=== PATIENT | male | born 1950 | race American Indian/Alaskan Native ===

== ENCOUNTER 2017-02-05 12:28 | Outpatient (CLI) | payer MEDICARE, OTHER ==
--- NOTE | 2017-02-06 08:20 | Vascular Lab Report ---
LOWER EXTREMITY ARTERIAL DUPLEX: REASON FOR EXAM: Peripheral arterial disease. COMMENTS ON THE RIGHT: Triphasic waveforms are seen proximally. Monophasic waveforms are seen distally. No significant velocity gradients are identified. No focal significant plaque is identified. Right femoral TP trunk bypass is patent. 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 Findings are consistent with abnormal perfusion. Findings are inconclusive with the ability to heal distal wounds. COMMENTS ON THE LEFT: Biphasic waveforms are seen proximally. Biphasic waveforms are seen distally. No significant velocity gradients are identified. No focal significant plaque is identified. Left femoral-popliteal bypass is patent Findings are consistent with abnormal perfusion. Findings are inconclusive with the ability to heal distal wounds. IMPRESSION: RIGHT: Patent right femoral TP trunk bypass with a false aneurysm at the distal anastomosis.. LEFT:Patent left femoropopliteal bypass.
--- NOTE | 2017-02-06 08:21 | Vascular Lab Report ---
LOWER EXTREMITY ARTERIAL PHYSIOLOGIC STUDY: REASON FOR EXAM: Peripheral arterial disease. COMMENTS ON THE RIGHT: Ankle brachial index is 0.98. This value is normal. Toe brachial index is 0.84. This value is normal. Wound healing is likely. Pulse volume recording at the level of the ankle is normal. Exercise testing was not done. COMMENTS ON THE LEFT: Ankle brachial index is 0.96. This value is slightly decreased. Toe brachial index is 1.27. This value is normal. Wound healing is likely. Pulse volume recording at the level of the ankle is normal. Exercise testing was not done. IMPRESSION: RIGHT: No hemodynamically significant arterial disease. LEFT:No hemodynamically significant arterial disease.
== END 2017-02-05 12:29 | disposition home or self-care (01) ==
LOC: VAS 12:28
PROVIDERS: ATTEND Surgery Vascular Surgery
DX: I70.213 Atherosclerosis of native arteries of extremities with intermittent claudication, bilateral legs (principal)
CPT/HCPCS: 93922; 93925

== ENCOUNTER 2017-02-05 15:11 | Emergency (ER) | payer MEDICARE, OTHER ==
--- NOTE | 2017-02-05 15:32 | Emergency Department Report ---
Entered by KOURTNEY BRUNO, acting as scribe for UYEN AARON NP. Chief Complaint: Extremity Injury, Lower Stated Complaint: LT LEG SWELLING Time Seen by Provider: 02/05/17 15:24 - HPI History of Present Illness: 66 y/o male presents c/o tight left leg swelling that started earlier today. Pt notes incident occured after he got done with an US, which was ordered because he had blood in his urine. Pt notes pain in legs but denies fever, chest pain or SOB. Pt is not ambulatory and notes no swellling was present yesterday. - ROS Review of Systems: +left leg pain +left leg swelling -fever - Chest pain -SOB - Exam Vital Signs: Vital Signs 02/05/17 15:25 Temperature 97.5 F L Pulse Rate 78 Respiratory 20 Rate Blood Pressure 188/87 O2 Sat by Pulse 100 Oximetry Physical Exam: pt is alert and appropriate in triage. RLE edema noted. surgical site well healed, no signs or cellulites MSE screening note: Focused history and physical exam performed. Due to findings the following was ordered: labs, us ED Disposition for MSE Condition: Stable This documentation as recorded by the scribe,KOURTNEY BRUNO,accurately reflects the service I personally performed and the decisions made by ,UYEN AARON , NUCLEAR REACTOR ENGINEER.
[2017-02-05 15:46] LABS: Basophils % (Auto) 0.7 % (0.0-1.8); Eosinophils % (Auto) 2.7 % (0.0-4.3); Hematocrit 29.3 % (35.5-45.6); Hemoglobin 9.4 gm/dl (11.8-15.2); Mean Corpuscular HGB Conc 32 % (32-34); Mean Corpuscular Hemoglobin 26 pg (28-32); Mean Corpuscular Volume 81 fl (84-94); Platelet Count 450 K/mm3 (140-440); Red Cell Distribution Width 18.2 % (13.2-15.2); White Blood Count 11.6 K/mm3 (4.5-11.0)
[2017-02-05 15:58] LABS: INR 1.98 (0.87-1.13)
[2017-02-05 16:11] LABS: Albumin 3.3 g/dL (3.9-5); Albumin/Globulin Ratio 0.6 %; Alkaline Phosphatase 63 units/L (35-129); Anion Gap 21 mmol/L; Bilirubin,Total 0.3 mg/dL (0.1-1.2); Blood Urea Nitrogen 21 mg/dL (9-20); Calcium 9.5 mg/dL (8.4-10.2); Carbon Dioxide 24 mmol/L (22-30); Chloride 95.5 mmol/L (98-107); Glucose 154 mg/dL (75-100); Potassium 4.4 mmol/L (3.6-5.0); Sodium 136 mmol/L (137-145); Total Protein 8.7 g/dL (6.3-8.2)
[2017-02-05 16:12] LABS: Alanine Aminotransferase < 5 units/L (7-56)
[2017-02-05 16:35] LABS: Partial Thromboplastin Time 65.6 Sec. (24.2-36.6)
--- NOTE | 2017-02-05 17:10 | Emergency Department Report ---
ED General Adult HPI - General Chief complaint: Extremity Injury, Lower Stated complaint: LT LEG SWELLING Time Seen by Provider: 02/05/17 15:24 Source: patient Mode of arrival: Wheelchair Limitations: Physical Limitation - History of Present Illness Initial comments: 66-year-old female with history of hypertension, diabetes, prior CVA, femoropopliteal bypass bilaterally on Xarelto and Plavix presenting today because of right leg pain and swelling. Patient just had a arterial Doppler of his lower extremities which showed a small pseudoaneurysm and as he was leaving the hospital he said he had pain to his right leg and swelling. He has baseline decreased sensation in both legs. No significant trauma. Did not step awkwardly. - Related Data Home Medications Medication Instructions Recorded Confirmed Last Taken AtorvaSTATin [Lipitor] 80 mg PO QDAY 05/14/16 12/11/16 05/30/16 Cilostazol [Pletal] 100 mg PO QDAY 05/14/16 12/24/16 12/23/16 20:00 Clonidine HCl [Catapres] 0.3 mg PO Q8HR 05/14/16 12/24/16 12/24/16 05:30 Clopidogrel [Plavix] 75 mg PO QDAY 05/14/16 12/24/16 12/24/16 05:30 Furosemide [Lasix TAB] 40 mg PO QDAY 05/14/16 12/24/16 12/19/16 09:00 Gabapentin [Neurontin] 300 mg PO Q8HR 05/14/16 12/24/16 12/23/16 20:00 Losartan [Cozaar] 100 mg PO QDAY 05/14/16 12/24/16 12/24/16 05:30 Metoprolol [Lopressor TAB] 100 mg PO QDAY 05/14/16 12/24/16 12/24/16 05:30 Tamsulosin [Flomax] 0.4 mg PO QDAY 05/14/16 12/24/16 12/23/16 21:00 glipiZIDE [Glucotrol] 5 mg PO QDAY 05/14/16 12/24/16 12/23/16 17:00 metFORMIN [Glucophage] 500 mg PO BID 05/14/16 12/24/16 12/21/16 17:00 Previous Rx's Medication Instructions Recorded Last Taken Type Acetaminophen [Acetaminophen TAB] 650 mg PO Q4H PRN #1 tablet 06/07/16 12/23/16 20:00 Rx HYDROcodone/APAP 5-325 [[place] 2 each PO Q6H PRN #45 tablet 06/07/16 Unknown Rx 5-325 mg TAB] HYDROcodone/APAP 7.5-325 [[place] 1 each PO Q6HR PRN #60 tablet 12/28/16 Unknown Rx 7.5/325] Allergies Allergy/AdvReac Type Severity Reaction Status Date / Time lisinopril Allergy Shortness Verified 02/05/17 15:31 of Breath ED Review of Systems ROS: Stated complaint: LT LEG SWELLING Other details as noted in HPI Comment: All other systems reviewed and negative Constitutional: denies: chills, fever Respiratory: denies: cough Cardiovascular: denies: chest pain Gastrointestinal: denies: abdominal pain Genitourinary: denies: dysuria Skin: denies: rash Psychiatric: denies: anxiety ED Past Medical Hx - Past Medical History Hx Hypertension: Yes (1995) Hx Congestive Heart Failure: Yes Hx Diabetes: Yes Hx Deep Vein Thrombosis: Yes Hx Liver Disease: No Hx Renal Disease: Yes Additional medical history: PVD - Surgical History Additional Surgical History: BILATERAL LEG SURGERY - Social History Smoking Status: Former Smoker Substance Use Type: None - Medications Home Medications: Home Medications Medication Instructions Recorded Confirmed Last Taken Type AtorvaSTATin [Lipitor] 80 mg PO QDAY 05/14/16 12/11/16 05/30/16 History Cilostazol [Pletal] 100 mg PO QDAY 05/14/16 12/24/16 12/23/16 20:00 History Clonidine HCl [Catapres] 0.3 mg PO Q8HR 05/14/16 12/24/16 12/24/16 05:30 History Clopidogrel [Plavix] 75 mg PO QDAY 05/14/16 12/24/16 12/24/16 05:30 History Furosemide [Lasix TAB] 40 mg PO QDAY 05/14/16 12/24/16 12/19/16 09:00 History Gabapentin [Neurontin] 300 mg PO Q8HR 05/14/16 12/24/16 12/23/16 20:00 History Losartan [Cozaar] 100 mg PO QDAY 05/14/16 12/24/16 12/24/16 05:30 History Metoprolol [Lopressor TAB] 100 mg PO QDAY 05/14/16 12/24/16 12/24/16 05:30 History Tamsulosin [Flomax] 0.4 mg PO QDAY 05/14/16 12/24/16 12/23/16 21:00 History glipiZIDE [Glucotrol] 5 mg PO QDAY 05/14/16 12/24/16 12/23/16 17:00 History metFORMIN [Glucophage] 500 mg PO BID 05/14/16 12/24/16 12/21/16 17:00 History Acetaminophen [Acetaminophen TAB] 650 mg PO Q4H PRN #1 tablet 06/07/16 12/24/16 12/23/16 20:00 Rx HYDROcodone/APAP 5-325 [[place] 2 each PO Q6H PRN #45 tablet 06/07/16 12/11/16 Unknown Rx 5-325 mg TAB] HYDROcodone/APAP 7.5-325 [[place] 1 each PO Q6HR PRN #60 tablet 12/28/16 Unknown Rx 7.5/325] ED Physical Exam - General Limitations: Physical Limitation General appearance: alert, in no apparent distress - Head Head exam: Present: atraumatic - Eye Eye exam: Present: normal appearance - ENT ENT exam: Present: normal exam - Respiratory Respiratory exam: Present: normal lung sounds bilaterally, respiratory distress - Cardiovascular Cardiovascular Exam: Present: regular rate, normal rhythm - GI/Abdominal GI/Abdominal exam: Present: soft. Absent: distended, tenderness - Extremities Exam Extremities exam: Present: other (right lower extremity does appear little more swollen compared to the left, there is no significant tenderness to the or distally, has 2 surgical scar wounds on both legs, has decreased sensation in the foot bilaterally which appears to be baseline per the patient, DP and PT pulses are faint but present) - Neurological Exam Neurological exam: Present: alert, oriented X3 - Psychiatric Psychiatric exam: Present: normal affect ED Course Vital Signs 02/05/17 15:25 Temperature 97.5 F L Pulse Rate 78 Respiratory 20 Rate Blood Pressure 188/87 O2 Sat by Pulse 100 Oximetry - Consultations Consultation #1: 02/05/17 17:10 Subjective vascular surgery, spoke to the PA communicate my concern for possible compartment syndrome. The PA called back after speaking to the vascular surgeon that operated on the patient, Dr. Nathan, states that due to the bypass the patient had his fascia was opened and he cannot develop compartment syndrome. Vascular the patient does have chronic right lower extremity swelling pain. They recommended discharge with follow up in the office. ED Medical Decision Making - Lab Data Result diagrams: 02/05/17 15:33 02/05/17 15:33 - Medical Decision Making Labs, pain medication, vascular surgery consult Show some renal failure but it is chronic based on prior lab results. Patient is on anticoagulation with relative and coagulation studies are elevated. Critical care attestation.: If time is entered above; I have spent that time in minutes in the direct care of this critically ill patient, excluding procedure time. ED Disposition Clinical Impression: Right leg pain Disposition: DISCHARGED TO HOME OR SELFCARE Is pt being admited?: No Condition: Stable Additional Instructions: Please follow up with Dr. Nathan, your vascular surgeon, in the next 2-3 days. Return to the emergency room if your symptoms worsen or he develop new symptoms.
[2017-02-05] MEDS: PERCOCET 5/325 PO ONE (17:43)
[2017-02-05] MEDS: MORPHINE IV ONE (17:43)
[2017-02-05 18:37] VITALS: BP 170/78
== END 2017-02-05 18:38 | disposition home or self-care (01) ==
LOC: ED 15:11
DX: M79.604 Pain in right leg (principal); Z88.8 Allergy status to other drugs, medicaments and biological substances; I10 Essential (primary) hypertension; I50.9 Heart failure, unspecified; E11.9 Type 2 diabetes mellitus without complications; I82.409 Acute embolism and thrombosis of unspecified deep veins of unspecified lower extremity; N28.9 Disorder of kidney and ureter, unspecified; Z87.891 Personal history of nicotine dependence
CPT/HCPCS: 36415; 80053; 82140; 82550; 83880; 85025; 85610; 85730; 99283; J2270

== ENCOUNTER 2017-02-11 19:35 | Inpatient (IN) | payer MEDICARE, OTHER ==
[2017-02-11] MEDS ORDERED: DULCOLAX PR PRN (19:53)
[2017-02-11] MEDS ORDERED: D50W (25GM) IV PRN (19:53)
[2017-02-11] MEDS ORDERED: SENOKOT PO PRN (19:53)
[2017-02-11] MEDS: GLUCOPHAGE PO SCH (21:44)
[2017-02-11] MEDS: NEURONTIN PO SCH (21:44)
[2017-02-11] MEDS: CATAPRES PO SCH (21:44)
[2017-02-11] MEDS: NORCO 5/325 PO PRN (21:44)
[2017-02-11] MEDS: NOVOLOG SUB-Q SCH (21:46)
[2017-02-11] MEDS ORDERED: NON-FORMULARY (Clonidine Hcl [Catapres] 0.3 MG) PO SCH (22:00)
[2017-02-11] MEDS: ELIQUIS PO SCH (22:35)
[2017-02-12 05:06] LABS: Eosinophils % (Auto) 6.2 % (0.0-4.3); Hematocrit 24.3 % (35.5-45.6); Hemoglobin 7.9 gm/dl (11.8-15.2); Mean Corpuscular HGB Conc 33 % (32-34); Mean Corpuscular Hemoglobin 27 pg (28-32); Mean Corpuscular Volume 82 fl (84-94); Platelet Count 418 K/mm3 (140-440); Red Blood Count 2.97 M/mm3 (3.65-5.03); Red Cell Distribution Width 18.1 % (13.2-15.2); White Blood Count 10.3 K/mm3 (4.5-11.0)
[2017-02-12 05:52] LABS: Albumin 2.8 g/dL (3.9-5); Albumin/Globulin Ratio 0.7 %; Alkaline Phosphatase 61 units/L (35-129); Bilirubin,Total 0.3 mg/dL (0.1-1.2); Blood Urea Nitrogen 32 mg/dL (9-20); Calcium 8.7 mg/dL (8.4-10.2); Carbon Dioxide 26 mmol/L (22-30); Glucose 164 mg/dL (75-100); Total Protein 6.9 g/dL (6.3-8.2)
[2017-02-12 05:53] LABS: Anion Gap 15 mmol/L; Chloride 94.6 mmol/L (98-107); Sodium 132 mmol/L (137-145)
[2017-02-12 06:00] LABS: Alanine Aminotransferase < 5 units/L (7-56)
[2017-02-12] MEDS: NEURONTIN PO SCH ×3 (06:23→23:06)
[2017-02-12] MEDS: CATAPRES PO SCH ×3 (06:24→23:08)
[2017-02-12] MEDS ORDERED: NON-FORMULARY (Losartan [Cozaar] 100 MG) PO SCH (08:00)
[2017-02-12] MEDS: NOVOLOG SUB-Q SCH ×3 (08:38→16:30)
[2017-02-12] MEDS: ELIQUIS PO SCH ×3 (08:39→23:07)
[2017-02-12] MEDS: PLETAL PO SCH (08:40)
[2017-02-12] MEDS: NORCO 5/325 PO PRN (08:41)
[2017-02-12] MEDS: COZAAR PO SCH (08:42)
[2017-02-12] MEDS: LASIX PO SCH (08:43)
[2017-02-12] MEDS: PLAVIX PO SCH (08:43)
[2017-02-12] MEDS: GLUCOPHAGE PO SCH ×2 (08:44→23:08)
[2017-02-12] MEDS: FLOMAX PO SCH (08:44)
[2017-02-12] MEDS: LOPRESSOR PO SCH (08:44)
--- NOTE | 2017-02-12 13:36 | History and Physical Report ---
History of Present Illness Date: 02/12/17 Referring Facility: [facility] Date of admission: 02/11/17 19:35 Chief Complaint: PVD, bypass graft complication History of present illness: POST ADMISSION PHYSICIAN EVALUATION ONSET DATE: 02/06/2017 IMPAIRMENT GROUP CODE: 17.4 ETIOLOGIC DIAGNOSIS: PVD, bypass graft complication STATUS CHANGES SINCE PREADMISSION SCREENING: PAS has been reviewed. No significant changes noted; H/H is stable; pain is controlled on current regimen. Pt was able to tolerate therapy evaluations; remains an appropriate candidate for IRU. PREVIOUS FUNCTIONAL STATUS: Independent with ADLs, gait, transfers CURRENT FUNCTIONAL STATUS: S/SBA for transfers and gait; Romel to modA for ADLs HPI 66 y.o. male known to me from previous IRU admission in May 2016; admitted to [facility] due to progressively worsening RLE pain and swelling. Pt has a history of right femoropopliteal bypass in May 2016, with recent re-do; post-op with noted symptoms that worsening progressively. 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 Pt is now s/p repair and angioplasty of right peroneal artery. Post-operative course significant for elevated troponins; Cardiology consulted and recommended treatment for abnormal troponins/NSTEMI was anti-platelets and continuation of Eliquis. Acute care course also notable for transfusion of 3U pRBCs due to acute blood loss anemia; RLE pain; gait dysfunction. Pt is now admitted to IRU for aggressive therapies and ongoing medical management. Past History Past Medical History: CAD, diabetes, heart failure, hypertension, hyperlipidemia , PVD, stroke Past Surgical History: Other (multiple revascularization procedures) Social history: lives with family (daugther). denies: smoking, alcohol abuse Family history: diabetes, hypertension Medications and Allergies Allergies Allergy/AdvReac Type Severity Reaction Status Date / Time lisinopril Allergy Shortness Verified 02/05/17 15:31 of Breath Home Medications Medication Instructions Recorded Confirmed Last Taken Type AtorvaSTATin [Lipitor] 80 mg PO QDAY 05/14/16 02/12/17 05/30/16 History Cilostazol [Pletal] 100 mg PO QDAY 05/14/16 02/12/17 12/23/16 20:00 History Clonidine HCl [Catapres] 0.3 mg PO Q8HR 05/14/16 02/12/17 12/24/16 05:30 History Clopidogrel [Plavix] 75 mg PO QDAY 05/14/16 02/12/17 12/24/16 05:30 History Furosemide [Lasix TAB] 40 mg PO QDAY 05/14/16 02/12/17 12/19/16 09:00 History Gabapentin [Neurontin] 300 mg PO Q8HR 05/14/16 02/12/17 12/23/16 20:00 History Losartan [Cozaar] 100 mg PO QDAY 05/14/16 02/12/17 12/24/16 05:30 History Metoprolol [Lopressor TAB] 100 mg PO QDAY 05/14/16 02/12/17 12/24/16 05:30 History Tamsulosin [Flomax] 0.4 mg PO QDAY 05/14/16 02/12/17 12/23/16 21:00 History glipiZIDE [Glucotrol] 5 mg PO QDAY 05/14/16 02/12/17 12/23/16 17:00 History metFORMIN [Glucophage] 500 mg PO BID 05/14/16 02/12/17 12/21/16 17:00 History Acetaminophen [Acetaminophen TAB] 650 mg PO Q4H PRN #1 tablet 06/07/16 02/12/17 12/23/16 20:00 Rx HYDROcodone/APAP 5-325 [[place] 2 each PO Q6H PRN #45 tablet 06/07/16 02/12/17 Unknown Rx 5-325 mg TAB] HYDROcodone/APAP 7.5-325 [[place] 1 each PO Q6HR PRN #60 tablet 12/28/16 02/12/17 Unknown Rx 7.5/325] Apixaban [Eliquis] 5 mg PO Q12HR #60 tablet 02/11/17 02/12/17 Unknown Rx Apixaban [Eliquis] 10 mg PO Q12HR #20 tablet 02/11/17 02/12/17 Unknown Rx Active Meds: Active Medications Acetaminophen (Tylenol) 650 mg PO Q4H PRN PRN Reason: Pain MILD(1-3)/Fever >100.5/MARTINEZ Acetaminophen/Hydrocodone Bitart ([place] 5/325) 2 each PO Q6H PRN PRN Reason: Pain, Moderate (4-6) Last Admin: 02/12/17 08:41 Dose: 2 each Apixaban (Eliquis) 5 mg PO Q12HR [facility] PRN Reason: Protocol Last Admin: 02/12/17 10:21 Dose: Not Given Atorvastatin Calcium (Lipitor) 80 mg PO QDAY [facility] Last Admin: 02/12/17 08:43 Dose: 80 mg Bisacodyl (Dulcolax) 10 mg [place] QDAY PRN PRN Reason: Constipation unrelieved by MOM Cilostazol (Pletal) 100 mg PO QDAY [facility] Last Admin: 02/12/17 08:40 Dose: 100 mg Clonidine HCl (Catapres) 0.3 mg PO Q8HR [facility] Last Admin: 02/12/17 06:24 Dose: Not Given Clopidogrel Bisulfate (Plavix) 75 mg PO QDAY [facility] Last Admin: 02/12/17 08:43 Dose: 75 mg Dextrose (D50w (25gm)) 50 ml IV PRN PRN PRN Reason: Hypoglycemia Furosemide (Lasix) 40 mg PO QDAY [facility] Last Admin: 02/12/17 08:43 Dose: 40 mg Gabapentin (Neurontin) 300 mg PO Q8HR [facility] Last Admin: 02/12/17 06:23 Dose: 300 mg Insulin Aspart (Novolog) 0 units SUB-Q ACHS [facility] PRN Reason: Protocol Last Admin: 02/12/17 08:38 Dose: 1 units Losartan Potassium (Cozaar) 100 mg PO QDAY [facility] Last Admin: 02/12/17 08:42 Dose: 100 mg Metformin HCl (Glucophage) 500 mg PO BID [facility] Last Admin: 02/12/17 08:44 Dose: 500 mg Metoprolol Tartrate (Lopressor) 100 mg PO QDAY [facility] Last Admin: 02/12/17 08:44 Dose: 100 mg Senna (Senokot) 8.6 mg PO Q12H PRN PRN Reason: Laxative Effect Tamsulosin HCl (Flomax) 0.4 mg PO QDAY [facility] Last Admin: 02/12/17 08:44 Dose: 0.4 mg Review of Systems All systems: negative Ears, nose, mouth and throat: no headache Cardiovascular: lightheadedness (upon initial standing), no chest pain Respiratory: no cough, no shortness of breath Gastrointestinal: no nausea, no vomiting, no constipation (last BM this AM) Genitourinary Male: no dysuria Musculoskeletal: leg numbness/tingling (RLE), gait dysfunction Exam - Constitutional Vitals: Vital Signs - 12hr 02/12/17 02/12/17 02/12/17 06:00 06:24 08:00 Temperature 97.7 F 97.7 F Pulse Rate 74 Pulse Rate [ 74 74 Right Brachial] Respiratory 18 20 Rate Blood Pressure 119/66 Blood Pressure 119/66 146/68 [Right Arm] O2 Sat by Pulse 99 100 Oximetry 02/12/17 02/12/17 08:42 08:44 Temperature Pulse Rate 74 74 Pulse Rate [ Right Brachial] Respiratory Rate Blood Pressure 146/68 146/68 Blood Pressure [Right Arm] O2 Sat by Pulse Oximetry General appearance: no acute distress - EENT Eyes: EOM intact ENT: hearing intact - Neck Neck: supple, normal ROM - Respiratory Respiratory effort: normal Respiratory: bilateral: CTA - Cardiovascular Rhythm: regular Heart Sounds: Present: S1 & S2 - Extremities Extremity abnormal: edema (RLE), tenderness (mild, below knee) - Gastrointestinal General gastrointestinal: Present: soft, non-tender, non-distended, normal bowel sounds - Integumentary Integumentary: Present: dry - Musculoskeletal Musculoskeletal: right sided weakness (4/5 right hip flexion; 3/5 knee flexion/ extension and ankle DF, 2/5 ankle PF) - Neurologic Neurologic: CNII-XII intact, other (decreased sensation at RLE, greatest deficit below ankle) - Psychiatric Psychiatric: appropriate mood/affect, intact judgment & insight, memory intact, cooperative - Allied health notes FIMS assesment as documented by PT/OT/ST: Grooming Patient cleans teeth/dentures: Yes Patient cox/brushes hair: Yes Patient washes, rinses and Yes dries face: Patient washes, rinses and Yes dries hands: Patient performs (no make-up/ 4/4 (100%) shaving): Grooming FIM Score 5. Supervision ([place] applies toothpaste or opens containers.) Toileting Patient able to perform: 3/3 (100%) Toileting FIM Score 4. Minimal Assistance (Patient = 75% or more. Needs touching.) Social interaction/Memory/Problem solving Social Interaction FIM Score 7. Complete [place] (Interacts appropriately. Controls temper.) Memory FIM Score 6. Modified [place](Mild difficulty remembering people/routines.) Problem Solving FIM Score 5. Supervision (Needs cueing <10% to solve routine problems.) Transfers Mode of Locomotion: Wheelchair Bed/Chair/Wheelchair Transfers 4. Minimal Assistance (Patient = 75% or more. FIM Score Needs touching.) Toilet Transfers FIM Score 4. Minimal Assistance (Patient = 75% or more. Needs touching.) Eating Eating FIM Score 6. Modified Gary (Special consistency or uses device.) Dressing-Upper body Patient retrieves clothing No items: Upper Body Dressing FIM Score 5. Supv./Set-Up ([place] sets out clothes or applies pros./orth.) Dressing-lower body Patient retrieves clothing No items: Lower Body Dressing FIM Score 4. Minimal Assistance (Patient = 75% or more. Needs touching.) - Labs CBC & Chem 7: 02/12/17 04:25 02/12/17 04:25 Labs: Laboratory Results - last 72 hr 02/11/17 02/12/17 02/12/17 21:05 04:25 04:25 WBC 10.3 RBC 2.97 L Hgb 7.9 L Hct 24.3 L MCV 82 L MCH 27 L MCHC 33 RDW 18.1 H Plt Count 418 Lymph % (Auto) 18.5 [place] % (Auto) 11.3 H Eos % (Auto) 6.2 H Baso % (Auto) 1.0 Lymph # 1.9 [place] # 1.2 H Eos # 0.6 H Baso # 0.1 Seg Neutrophils % 63.0 Seg Neutrophils # 6.5 Sodium 132 L Potassium 4.0 Chloride 94.6 L Carbon Dioxide 26 Anion Gap 15 BUN 32 H Creatinine 2.0 H Estimated GFR 41 BUN/Creatinine Ratio 16.00 Glucose 164 H POC Glucose 177 H Calcium 8.7 Total Bilirubin 0.3 AST 11 ALT < 5 L Alkaline Phosphatase 61 Total Protein 6.9 Albumin 2.8 L Albumin/Globulin Ratio 0.7 02/12/17 02/12/17 05:55 11:58 WBC RBC Hgb Hct MCV MCH MCHC RDW Plt Count Lymph % (Auto) [place] % (Auto) Eos % (Auto) Baso % (Auto) Lymph # [place] # Eos # Baso # Seg Neutrophils % Seg Neutrophils # Sodium Potassium Chloride Carbon Dioxide Anion Gap BUN Creatinine Estimated GFR BUN/Creatinine Ratio Glucose POC Glucose 162 H 82 Calcium Total Bilirubin AST ALT Alkaline Phosphatase Total Protein Albumin Albumin/Globulin Ratio Assessment and Plan Assessment and plan: 66 y.o. 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 Pt is now s/p repair and angioplasty of right peroneal artery. Post-operative course significant for abnormal troponins/ NSTEMI; acute blood loss anemia; RLE pain; gait dysfunction. The patient is now medically stable, however, requires ongoing medical management. Pt is appropriate for inpatient rehabilitation admission and is thought to be able to tolerate at least 3 hours of therapy a day, 5 days a week including 1.5 hours of physical therapy and 1.5 hours of occupational therapy. Patient is able to understand and follow basic directions and has attainable rehab goals. Potential barriers/complications include falls, uncontrolled pain, DVT, PE, worsening anemia, syncope, hypotension, fluctuating edema. Plan 1. Rehabilitation- Pt will undergo multidisciplinary/integrative rehab PT/OT, Nursing. Areas to be addressed include, but are not limited to PT for mobility , strengthening, transfer training, ROM, endurance, stairs, balance; OT for ADLs , household tasks, adaptive equipment; Nursing for carryover of therapies, pain control, education, skin integrity, medication management, bowel/bladder management; Nutrition as needed; creative services director for discharge planning and equipment needs. Potential interventions include appropriate assistive device or adaptive equipment. Expected overall level of functional improvement by discharge is Romel for ADLs, gait and transfers. Pt will tentatively be discharged home with outpatient PT. Estimated length of stay is 5-7 days. 2. 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 Continue pain control, mobilization; medical management 3. NSTEMI- medical management with anti-platelets and Eliquis 4. acute blood loss anemia- follow, s/p transfusion 5. unsteady gait- PT/OT to address balance, strengthening 6. HTN- controlled on current regimen; avoid hypotension 7. DM- continue current regimen; avoid hypoglycemia 8. Hyperlipidemia- continue statin 9. DVT px- on Eliquis - Patient Problems (1) PVD (peripheral vascular disease) with claudication Current Visit: Yes Status: Chronic (2) Bypass graft mechanical complication Current Visit: Yes Status: Resolved Qualifiers: Encounter type: initial encounter Qualified Code(s): T82.398A - Other mechanical complication of other vascular grafts, initial encounter (3) Gait instability Current Visit: Yes Status: Acute (4) Acute blood loss anemia Current Visit: Yes Status: Acute (5) NSTEMI (non-ST elevated myocardial infarction) Current Visit: Yes Status: Acute (6) Diabetes Current Visit: Yes Status: Chronic Qualifiers: Diabetes mellitus type: type 2 Diabetes mellitus complication status: with hyperglycemia Diabetes mellitus complication detail: D Diabetic retinopathy severity: D Proliferative retinopathy type: P Diabetes mellitus macular edema: D Diabetes mellitus termite renewal inspector insulin use: without termite renewal inspector use Laterality: L Chronic kidney disease stage: C Qualified Code(s): E11.65 - Type 2 diabetes mellitus with hyperglycemia (7) HTN (hypertension) Current Visit: Yes Status: Chronic Qualifiers: Hypertension type: essential hypertension Qualified Code(s): I10 - Essential (primary) hypertension (8) Hyperlipidemia Current Visit: Yes Status: Acute Qualifiers: Hyperlipidemia type: H
[2017-02-12] MEDS: TYLENOL PO PRN (14:02)
[2017-02-13] MEDS: NOVOLOG SUB-Q SCH ×5 (04:56→21:11)
[2017-02-13] MEDS: CATAPRES PO SCH ×3 (06:00→21:10)
[2017-02-13] MEDS: NORCO 5/325 PO PRN ×2 (08:21→17:58)
[2017-02-13] MEDS: NEURONTIN PO SCH ×3 (08:22→21:13)
[2017-02-13] MEDS: LASIX PO SCH (08:23)
[2017-02-13] MEDS: COZAAR PO SCH (08:24)
[2017-02-13] MEDS: GLUCOPHAGE PO SCH ×2 (08:24→21:12)
[2017-02-13] MEDS: PLAVIX PO SCH (08:25)
[2017-02-13] MEDS: FLOMAX PO SCH (08:25)
[2017-02-13] MEDS: PLETAL PO SCH (08:25)
[2017-02-13] MEDS: ELIQUIS PO SCH ×3 (08:25→21:12)
[2017-02-13] MEDS: LOPRESSOR PO SCH (08:26)
--- NOTE | 2017-02-13 11:22 | IRU Plan of Care ---
Interdisciplinary Plan of Care - [facility] IRU INTERDISCIPLINARY PLAN: [facility] Inpatient Rehab Unit Plan of Care IRU Interdisciplinary Care Plan Start: 02/11/17 20: 21 Freq: Admission then PRN Status: Active Document 02/13/17 10:46 DB (Rec: 02/13/17 10:54 DB [id number]) Interdisciplinary Problem List Interdisciplinary Problem List Interdisciplinary Problem List Impaired Bathing/Grooming Query Text:Answers will Trigger Problems Impaired Dressing and Outcomes on Worklist. Impaired Mobility Impaired Transfers Impaired Toileting Pain Management Knowledge Deficits Impaired Skin/Tissue Integrity Impaired Home Management Impaired Safety Medications Education Diabetes Education IRU Interdisciplinary Care Plan Therapy Services Therapy Services Will Include: Physical Therapy Query Text:Patient will be seen for a Occupational Therapy minimum of 3 hours of daily therapy 5 out of 7 days a week. Therapy intensity may be adjusted within a 7 consecutive day period to effectively serve the individual needs of the patient. Treatment Frequency/Intensity/Duration Treatment Frequency 5 days per week Treatment Intensity 1.5 hours per discipline (PT/OT ) daily Treatment Duration 10-14 days Problem Area: Eating/Swallowing Eating/Swallowing Outcomes Eating/Swallowing Interventions Problem Area: Bathing/Grooming Bathing/Grooming Outcomes Improve [place] w/ Grooming Improve [place] w/ Bathing Bathing/Grooming Interventions ADL Training Use of Assistive Devices Therapeutic Exercise Therapeutic Activity Balance Work Activity Tolerance Work Patient/Caregiver Education Problem Area: Dressing Dressing Outcomes Improve [place] w/ UB Dressing Improve [place] w/ LB Dressing Dressing Interventions ADL Training Use of Assistive Devices Therapeutic Exercise Balance Work Patient/Caregiver Education Problem Area: Mobility Mobility Outcomes Improve [place] w/ Ambulation Improve [place] w/ Stairs /Curb Improve [place] w/ Wheelchair Mobility Interventions Therapeutic Exercise Activity Tolerance Work Use of Assistive Devices Patient/Caregiver Education Gait Training W/C Mobility Work Problem Area: Transfers Transfers Outcomes Improve [place] w/ Bed Transfers Improve [place] w/ Toilet Transfers Improve [place] w/ Tub/ Shower Transfers Improve [place] w/ Car Transfers Transfers Interventions Transfer Training Therapeutic Exercise Activity Tolerance Work Use of Assistive Devices Patient/Caregiver Education Problem Area: Bowel/Bladder Managment Bowel/Bladder Outcomes Bowel/Bladder Interventions Problem Area: Toileting Toileting Outcomes Improve [place] w/ Toileting Toileting Interventions ADL Training Balance Work Use of Assistive Devices Patient/Caregiver Education Problem Area: Nutrition Nutrition Outcomes Understand and Comply w/ Diet Improve/Maintain Oral Intake Nutrition Interventions Monitor Nutrient Intake Patient/Caregiver Education Problem Area: Comprehension Comprehension Outcomes Comprehension Interventions Problem Area: Expression Expression Outcomes Expression Interventions Problem Area: Problem Solving Problem Solving Outcomes Problem Solving Interventions Problem Area: Memory Memory Outcomes Memory Interventions Problem Area: Pain Management Pain Management Outcomes Demonstrate/Verbalize Pain Strategies Pain Management Interventions Medication Management Positioning/Turning Patient/Caregiver Education Problem Area: Knowledge Deficits Knowledge Deficits Outcomes Verbalize Precautions Knowledge Deficits Interventions Medication Use Education Health Maintainence Education Safety Education Problem Area: Skin/Tissue Integrity Skin/Tissue Integrity Outcomes Exhibit Healing of Wound/ Incision Demonstrate Understanding of Pressure Relief Skin/Tissue Integrity Interventions Skin/Wound Care Pressure Relief Instruction Positioning/Turning Problem Area: Social Interaction Social Interaction Outcomes Social Interaction Interventions Problem Area: Adjustment to Disability Adjustment to Disability Outcomes Adjustment to Disability Interventions Problem Area: Discharge Concerns Discharge Concerns Outcomes Discharge Home w/ Necessary Equipment Have Home Health/Outpatient Services Discharge Concerns Interventions Discharge Planning Family/Caregiver Conference Family/Caregiver Training Problem Area: Community Reintegration Community Reintegration Outcomes Demonstrate Understanding of Community Resources Community Reintegration Interventions Provide Community Resources Problem Area: Home Management Home Management Outcomes Improve [place] w/ Home Management Home Management Interventions Meal Preparation Activity Tolerance Work House Cleaning Patient/Caregiver Education Problem Area: Safety Safety Outcomes Provide Safe Environment Perform Selfcare Safely Demonstrate Good Safety w/ Transfers/Mobility Safety Interventions Identify Fall Risk [place] Pt. to Environment Reduce Environmental Hazards Problem Area: Medication Education Medication Education Outcomes Patient/Caregiver will Verbalize Understanding of Medications Medication Education Interventions Explain Administration/Side Effects/Interactions Problem Area: Diabetes Education Diabetes Education Outcomes Demonstrate Knowledge of Resources Availlable in Diabetic Ed. Folder Diabetes Education Interventions Give Pt. Diabetes Education Folder Discuss Pathophysiology of Diabetes Problem Area: Oxygenation Oxygenation Outcomes Oxygenation Interventions Problem Area: Cardiovascular Cardiovascular Outcomes Cardiovascular Interventions Physician Only Medical Prognosis and Rehabilitation Patient demonstrates good Potential (Completed by Physician) rehab potential. Medical Prognosis: Good This plan of care has been developed based on the findings from the pre- admission assessment, post admission physician evaluation, information gathered from the assessments from all therapy disciplines and other pertinent clinicians. The plan of care has been reviewed and discussed in collaboration with the interdisciplinary team. The plan of care will be reviewed and updated at least weekly. 66 y.o. 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 Pt is now s/p repair and angioplasty of right peroneal artery. Post-operative course significant for abnormal troponins/ NSTEMI; acute blood loss anemia; RLE pain; gait dysfunction. The remains at risk for falls, uncontrolled pain, DVT, PE, worsening anemia, syncope, hypotension, fluctuating edema. Pain is stable on current regimen; H/H is currently stable, repeat labs in AM; blood sugars and blood pressures are also stable; no complaints of chest pain since admission. Pt is tolerating therapies and is showing improvement in functional independence. Pt remains an appropriate candidate for IRU admission.
--- NOTE | 2017-02-13 11:35 | Progress Note ---
Assessment and Plan 66 y.o. 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; angioplasty of right peroneal artery- pain controlled; medical management - NSTEMI- Plavix; Eliquis - acute blood loss anemia- repeat labs scheduled for tomorrow AM - unsteady gait- progressing with PT - HTN/DM- stable on current regimen - DVT px- on Eliquis - Patient Problems (1) PVD (peripheral vascular disease) with claudication Current Visit: Yes Status: Chronic (2) Bypass graft mechanical complication Current Visit: Yes Status: Resolved Qualifiers: Encounter type: initial encounter Qualified Code(s): T82.398A - Other mechanical complication of other vascular grafts, initial encounter (3) Gait instability Current Visit: Yes Status: Acute (4) Acute blood loss anemia Current Visit: Yes Status: Acute (5) NSTEMI (non-ST elevated myocardial infarction) Current Visit: Yes Status: Acute (6) Diabetes Current Visit: Yes Status: Chronic Qualifiers: Diabetes mellitus type: type 2 Diabetes mellitus complication status: with hyperglycemia Diabetes mellitus complication detail: D Diabetic retinopathy severity: D Proliferative retinopathy type: P Diabetes mellitus macular edema: D Diabetes mellitus half-way insulin use: without half-way use Laterality: L Chronic kidney disease stage: C Qualified Code(s): E11.65 - Type 2 diabetes mellitus with hyperglycemia (7) HTN (hypertension) Current Visit: Yes Status: Chronic Qualifiers: Hypertension type: essential hypertension Qualified Code(s): I10 - Essential (primary) hypertension Subjective Date of service: 02/13/17 Principal diagnosis: PVD Interval history: Pt seen in dining room this AM, F/U IRU, with PVD. Pt with ongoing intermittent Rt LE pain; swelling stable; +BM Objective - Constitutional Vitals: Vital Signs - 12hr 02/13/17 02/13/17 02/13/17 07:39 08:24 08:26 Temperature 98.3 F Pulse Rate 80 80 Pulse Rate [ 80 Right Brachial] Respiratory 18 Rate Blood Pressure 142/75 142/75 Blood Pressure 142/75 [Right Arm] O2 Sat by Pulse 100 Oximetry General appearance: Present: no acute distress, other (sitting up in WC) - EENT Eyes: EOM intact ENT: hearing intact - Neck Neck: supple, normal ROM - Respiratory Respiratory effort: normal Extremity abnormal: edema (RLE, stable) - Gastrointestinal General gastrointestinal: Present: soft, non-tender, non-distended - Musculoskeletal Musculoskeletal: right sided weakness - Neurologic Neurologic: CNII-XII intact, moves all extremities - Psychiatric Psychiatric: appropriate mood/affect, intact judgment & insight, memory intact, cooperative - Allied health notes Allied health notes reviewed: PT (ambulating 47 feet), OT (CGA for transfers, toileting, LB dressing) - Labs CBC & Chem 7: 02/12/17 04:25 02/12/17 04:25 Labs: Abnormal lab results 02/12/17 02/12/17 02/13/17 Range/Units 16:48 21:10 06:03 POC Glucose 125 H 133 H 110 H (70-105)
[2017-02-14 04:48] LABS: Hematocrit 27.6 % (35.5-45.6); Hemoglobin 8.9 gm/dl (11.8-15.2); Mean Corpuscular HGB Conc 32 % (32-34); Mean Corpuscular Hemoglobin 27 pg (28-32); Mean Corpuscular Volume 82 fl (84-94); Platelet Count 528 K/mm3 (140-440); Red Blood Count 3.36 M/mm3 (3.65-5.03); Red Cell Distribution Width 17.7 % (13.2-15.2); White Blood Count 10.5 K/mm3 (4.5-11.0)
[2017-02-14 04:57] LABS: BUN/Creatinine Ratio 12.38; Calcium 9.2 mg/dL (8.4-10.2); Chloride 95.7 mmol/L (98-107); Potassium 4.8 mmol/L (3.6-5.0)
[2017-02-14] MEDS: NEURONTIN PO SCH ×4 (05:40→21:38)
[2017-02-14] MEDS: CATAPRES PO SCH ×3 (05:40→21:38)
[2017-02-14] MEDS: NOVOLOG SUB-Q SCH ×4 (08:32→21:37)
[2017-02-14] MEDS: PLAVIX PO SCH (08:48)
[2017-02-14] MEDS: GLUCOPHAGE PO SCH ×2 (08:48→21:38)
[2017-02-14] MEDS: FLOMAX PO SCH (08:48)
[2017-02-14] MEDS: LOPRESSOR PO SCH (08:51)
[2017-02-14] MEDS: PLETAL PO SCH (08:55)
[2017-02-14] MEDS: LASIX PO SCH (09:07)
[2017-02-14] MEDS: ELIQUIS PO SCH ×2 (09:08→21:38)
[2017-02-14] MEDS: COZAAR PO SCH (09:08)
--- NOTE | 2017-02-14 12:14 | Progress Note ---
Assessment and Plan 66 y.o. 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; angioplasty of right peroneal artery- pain controlled; continue medical management - NSTEMI- Plavix; Eliquis - acute blood loss anemia- much improved H/H; 7.9/24.3-->8.9/27.6; follow intermittently - unsteady gait- progressing well with PT; CGA for gait - HTN/DM- remain stable on current regimen - DVT px- on Eliquis - team conference held on today- pt is oRmel for eating, grooming, UB Dressing, wheelchair mobility; SBA for bathing, LB dressing, toileting, toilet transfers; supervision to CGA for bed/chair/WC transfers; CGA for shower transfers; ambulating 80 feet RW at CGA, CGA for 8 stairs. Anticipated D/C date 02/19/2017, home with daughter, however she works during the day. - Patient Problems (1) PVD (peripheral vascular disease) with claudication Current Visit: Yes Status: Chronic (2) Bypass graft mechanical complication Current Visit: Yes Status: Resolved Qualifiers: Encounter type: initial encounter Qualified Code(s): T82.398A - Other mechanical complication of other vascular grafts, initial encounter (3) Gait instability Current Visit: Yes Status: Acute (4) Acute blood loss anemia Current Visit: Yes Status: Acute (5) NSTEMI (non-ST elevated myocardial infarction) Current Visit: Yes Status: Acute (6) Diabetes Current Visit: Yes Status: Chronic Qualifiers: Diabetes mellitus type: type 2 Diabetes mellitus complication status: with hyperglycemia Diabetes mellitus complication detail: D Diabetic retinopathy severity: D Proliferative retinopathy type: P Diabetes mellitus macular edema: D Diabetes mellitus senior living insulin use: without access services representative use Laterality: L Chronic kidney disease stage: C Qualified Code(s): E11.65 - Type 2 diabetes mellitus with hyperglycemia (7) HTN (hypertension) Current Visit: Yes Status: Chronic Qualifiers: Hypertension type: essential hypertension Qualified Code(s): I10 - Essential (primary) hypertension Subjective Date of service: 02/14/17 Principal diagnosis: PVD Interval history: Pt seen in PT gym this AM, F/U IRU, with PVD. No new complaints on today; pain remains intermittent, controlled on current regimen Objective - Constitutional Vitals: Vital Signs - 12hr 02/14/17 02/14/17 02/14/17 05:40 07:15 08:51 Temperature 97.9 F Pulse Rate 74 69 Pulse Rate [ 69 Right Brachial] Respiratory 20 Rate Blood Pressure 143/58 113/57 Blood Pressure 113/57 [Right Arm] O2 Sat by Pulse 100 Oximetry General appearance: Present: no acute distress, other (lying on mat) - EENT Eyes: EOM intact ENT: hearing intact - Neck Neck: supple, normal ROM - Respiratory Respiratory effort: normal Extremity abnormal: edema (unchanged at RLE) - Gastrointestinal General gastrointestinal: Present: soft, non-tender, non-distended - Musculoskeletal Musculoskeletal: right sided weakness (RLE, improving) - Neurologic Neurologic: CNII-XII intact, moves all extremities - Psychiatric Psychiatric: appropriate mood/affect, intact judgment & insight, memory intact, cooperative - Labs CBC & Chem 7: 02/14/17 04:21 02/14/17 04:21 Labs: Abnormal lab results 02/13/17 02/13/17 02/13/17 Range/Units 12:21 16:07 20:26 RBC (3.65-5.03) M/mm3 Hgb (11.8-15.2) gm/dl Hct (35.5-45.6) % MCV (84-94) fl MCH (28-32) pg RDW (13.2-15.2) % Plt Count (140-440) K/mm3 Sodium (137-145) mmol/L Chloride (98-107) mmol/L BUN (9-20) mg/dL Creatinine (0.8-1.5) mg/dL Glucose (75-100) mg/dL POC Glucose 128 H 140 H 158 H (70-105) 02/14/17 02/14/17 02/14/17 Range/Units 04:21 04:21 05:55 RBC 3.36 L (3.65-5.03) M/mm3 Hgb 8.9 L (11.8-15.2) gm/dl Hct 27.6 L (35.5-45.6) % MCV 82 L (84-94) fl MCH 27 L (28-32) pg RDW 17.7 H (13.2-15.2) % Plt Count 528 H (140-440) K/mm3 Sodium 134 L (137-145) mmol/L Chloride 95.7 L (98-107) mmol/L BUN 26 H (9-20) mg/dL Creatinine 2.1 H (0.8-1.5) mg/dL Glucose 122 H (75-100) mg/dL POC Glucose 113 H (70-105)
[2017-02-14] MEDS: NORCO 5/325 PO PRN ×2 (12:53→19:16)
[2017-02-15] MEDS: CATAPRES PO SCH ×3 (05:57→23:45)
[2017-02-15] MEDS: NEURONTIN PO SCH ×3 (05:58→22:15)
[2017-02-15] MEDS: NOVOLOG SUB-Q SCH ×4 (07:14→22:00)
[2017-02-15] MEDS: PLETAL PO SCH (08:21)
[2017-02-15] MEDS: PLAVIX PO SCH (08:21)
[2017-02-15] MEDS: FLOMAX PO SCH (08:23)
[2017-02-15] MEDS: LASIX PO SCH (08:23)
[2017-02-15] MEDS: GLUCOPHAGE PO SCH ×2 (08:23→22:15)
[2017-02-15] MEDS: ELIQUIS PO SCH ×3 (08:23→22:15)
--- NOTE | 2017-02-15 09:46 | Progress Note ---
Assessment and Plan 66 y.o. 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; angioplasty of right peroneal artery- pain controlled; continue medical management - NSTEMI- Plavix; Eliquis - acute blood loss anemia- recheck labs on Saturday - unsteady gait- continue gait training with PT - HTN/DM- not receiving BP meds as scheduled at times due to low BP; clonidine dose reduced; follow; maintain on current regimen for DM - acute on chronic renal failure- follow labs; improving - DVT px- on Eliquis - Patient Problems (1) PVD (peripheral vascular disease) with claudication Current Visit: Yes Status: Chronic (2) Bypass graft mechanical complication Current Visit: Yes Status: Resolved Qualifiers: Encounter type: initial encounter Qualified Code(s): T82.398A - Other mechanical complication of other vascular grafts, initial encounter (3) Gait instability Current Visit: Yes Status: Acute (4) Acute blood loss anemia Current Visit: Yes Status: Acute (5) NSTEMI (non-ST elevated myocardial infarction) Current Visit: Yes Status: Acute (6) Diabetes Current Visit: Yes Status: Chronic Qualifiers: Diabetes mellitus type: type 2 Diabetes mellitus complication status: with hyperglycemia Diabetes mellitus complication detail: D Diabetic retinopathy severity: D Proliferative retinopathy type: P Diabetes mellitus macular edema: D Diabetes mellitus jail insulin use: without jail use Laterality: L Chronic kidney disease stage: C Qualified Code(s): E11.65 - Type 2 diabetes mellitus with hyperglycemia (7) HTN (hypertension) Current Visit: Yes Status: Chronic Qualifiers: Hypertension type: essential hypertension Qualified Code(s): I10 - Essential (primary) hypertension (8) Acute on chronic renal failure Current Visit: Yes Status: Acute Subjective Date of service: 02/15/17 Principal diagnosis: PVD Interval history: Pt seen in room this AM, F/U IRU, with PVD. No new complaints; pain stable Objective - Constitutional Vitals: Vital Signs - 12hr 02/15/17 02/15/17 05:57 07:07 Temperature 98.3 F Pulse Rate 74 Pulse Rate [ 68 Right Brachial] Respiratory 18 Rate Blood Pressure 156/69 Blood Pressure 113/58 [Right Arm] O2 Sat by Pulse 100 Oximetry General appearance: Present: no acute distress - EENT Eyes: EOM intact ENT: hearing intact - Neck Neck: supple, normal ROM - Respiratory Respiratory effort: normal Extremity abnormal: edema (unchanged at RLE) - Gastrointestinal General gastrointestinal: Present: soft, non-tender - Neurologic Neurologic: CNII-XII intact, moves all extremities - Psychiatric Psychiatric: appropriate mood/affect, intact judgment & insight, memory intact, cooperative - Allied health notes Allied health notes reviewed: nursing (Romel to supervision with ADLs with nursing) - Labs CBC & Chem 7: 02/14/17 04:21 02/14/17 04:21 Labs: Abnormal lab results 02/14/17 02/14/17 02/15/17 Range/Units 16:14 20:48 06:00 POC Glucose 117 H 127 H 140 H (70-105)
[2017-02-15] MEDS: NORCO 5/325 PO PRN (10:55)
[2017-02-15] MEDS: LOPRESSOR PO SCH (14:37)
[2017-02-15] MEDS: COZAAR PO SCH (14:38)
[2017-02-16] MEDS: NEURONTIN PO SCH ×3 (06:51→22:04)
[2017-02-16] MEDS: CATAPRES PO SCH ×3 (06:52→22:05)
[2017-02-16] MEDS: NOVOLOG SUB-Q SCH ×4 (08:00→22:06)
[2017-02-16] MEDS: FLOMAX PO SCH (09:04)
[2017-02-16] MEDS: LASIX PO SCH (09:04)
[2017-02-16] MEDS: GLUCOPHAGE PO SCH ×2 (09:04→22:05)
[2017-02-16] MEDS: PLETAL PO SCH (09:05)
[2017-02-16] MEDS: PLAVIX PO SCH (09:05)
[2017-02-16] MEDS: LOPRESSOR PO SCH (09:05)
[2017-02-16] MEDS: ELIQUIS PO SCH ×2 (09:06→22:05)
[2017-02-16] MEDS: NORCO 5/325 PO PRN ×2 (09:06→20:50)
[2017-02-16] MEDS: COZAAR PO SCH (09:06)
[2017-02-17] MEDS: CATAPRES PO SCH ×3 (06:45→22:11)
[2017-02-17] MEDS: NEURONTIN PO SCH ×3 (06:45→22:11)
[2017-02-17] MEDS: FLOMAX PO SCH (08:56)
[2017-02-17] MEDS: LASIX PO SCH (08:57)
[2017-02-17] MEDS: GLUCOPHAGE PO SCH ×2 (08:57→22:12)
[2017-02-17] MEDS: LOPRESSOR PO SCH (08:57)
[2017-02-17] MEDS: COZAAR PO SCH (08:57)
[2017-02-17] MEDS: PLAVIX PO SCH (08:58)
[2017-02-17] MEDS: NOVOLOG SUB-Q SCH ×4 (08:59→22:13)
[2017-02-17] MEDS: PLETAL PO SCH (09:01)
[2017-02-17] MEDS: ELIQUIS PO SCH ×2 (11:59→22:12)
[2017-02-17] MEDS: NORCO 5/325 PO PRN (22:18)
[2017-02-18] MEDS: NEURONTIN PO SCH ×3 (06:48→22:47)
[2017-02-18] MEDS: CATAPRES PO SCH ×3 (06:48→22:48)
[2017-02-18] MEDS: PLAVIX PO SCH (08:41)
[2017-02-18] MEDS: FLOMAX PO SCH (08:41)
[2017-02-18] MEDS: LASIX PO SCH (08:41)
[2017-02-18] MEDS: LOPRESSOR PO SCH (08:42)
[2017-02-18] MEDS: PLETAL PO SCH (08:42)
[2017-02-18] MEDS: ELIQUIS PO SCH ×3 (08:42→22:48)
[2017-02-18] MEDS: GLUCOPHAGE PO SCH ×2 (08:42→22:48)
[2017-02-18] MEDS: NOVOLOG SUB-Q SCH ×4 (08:43→22:50)
[2017-02-18] MEDS: COZAAR PO SCH (08:43)
[2017-02-18] MEDS: NORCO 5/325 PO PRN ×2 (08:44→16:55)
--- NOTE | 2017-02-18 10:26 | Progress Note ---
Assessment and Plan 66 y.o. 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; angioplasty of right peroneal artery- pain controlled; continue medical management - NSTEMI- Plavix; Eliquis - acute blood loss anemia- lasb pending - unsteady gait- progressed to Romel-I with gait - HTN/DM- elevated AM BP; may need to increase to 0.2mg clonidine; follow; blood sugars well controlled - acute on chronic renal failure- recheck labs - DVT px- on Eliquis - Patient Problems (1) PVD (peripheral vascular disease) with claudication Current Visit: Yes Status: Chronic (2) Bypass graft mechanical complication Current Visit: Yes Status: Resolved Qualifiers: Encounter type: initial encounter Qualified Code(s): T82.398A - Other mechanical complication of other vascular grafts, initial encounter (3) Gait instability Current Visit: Yes Status: Acute (4) Acute blood loss anemia Current Visit: Yes Status: Acute (5) NSTEMI (non-ST elevated myocardial infarction) Current Visit: Yes Status: Acute (6) Diabetes Current Visit: Yes Status: Chronic Qualifiers: Diabetes mellitus type: type 2 Diabetes mellitus complication status: with hyperglycemia Diabetes mellitus complication detail: D Diabetic retinopathy severity: D Proliferative retinopathy type: P Diabetes mellitus macular edema: D Diabetes mellitus senior care insulin use: without tank terminal gauger use Laterality: L Chronic kidney disease stage: C Qualified Code(s): E11.65 - Type 2 diabetes mellitus with hyperglycemia (7) HTN (hypertension) Current Visit: Yes Status: Chronic Qualifiers: Hypertension type: essential hypertension Qualified Code(s): I10 - Essential (primary) hypertension (8) Acute on chronic renal failure Current Visit: Yes Status: Acute Subjective Date of service: 02/18/17 Principal diagnosis: PVD Interval history: Pt seen in PT gym this AM, F/U IRU, with PVD. Reports being tired from therapies over the weekend; pain well controlled Objective - Constitutional Vitals: Vital Signs - 12hr 02/18/17 02/18/17 02/18/17 07:03 08:42 08:43 Temperature 98.5 F Pulse Rate 79 79 Pulse Rate [ 79 Left Brachial] Respiratory 18 Rate Blood Pressure 180/74 180/74 Blood Pressure 180/74 [Left Arm] O2 Sat by Pulse 98 Oximetry 02/18/17 08:44 Temperature Pulse Rate Pulse Rate [ Left Brachial] Respiratory 20 Rate Blood Pressure Blood Pressure [Left Arm] O2 Sat by Pulse Oximetry General appearance: Present: no acute distress, other (lying on mat) - EENT Eyes: EOM intact ENT: hearing intact - Neck Neck: supple, normal ROM - Respiratory Respiratory effort: normal Respiratory: bilateral: CTA - Cardiovascular Rhythm: regular Heart Sounds: Present: S1 & S2 Extremity abnormal: edema (slightly improved at RLE) - Gastrointestinal General gastrointestinal: Present: soft, non-tender, non-distended, normal bowel sounds - Integumentary Integumentary: dry - Neurologic Neurologic: CNII-XII intact, moves all extremities - Psychiatric Psychiatric: appropriate mood/affect, intact judgment & insight, memory intact, cooperative - Allied health notes Allied health notes reviewed: PT (Independent with bed mobility; Romel/I for transfers; Romel for gait and stairs; supervision for car transfers) - Labs CBC & Chem 7: 02/14/17 04:21 02/14/17 04:21 Labs: Abnormal lab results 02/17/17 02/17/17 02/17/17 Range/Units 11:41 16:17 20:56 POC Glucose 147 H 148 H 121 H (70-105) 02/18/17 Range/Units 07:02 POC Glucose 115 H (70-105)
[2017-02-18 17:40] LABS: Hematocrit 30.7 % (35.5-45.6); Hemoglobin 9.7 gm/dl (11.8-15.2); Mean Corpuscular HGB Conc 32 % (32-34); Mean Corpuscular Hemoglobin 26 pg (28-32); Mean Corpuscular Volume 83 fl (84-94); Platelet Count 637 K/mm3 (140-440); Red Blood Count 3.71 M/mm3 (3.65-5.03); Red Cell Distribution Width 17.6 % (13.2-15.2); White Blood Count 13.2 K/mm3 (4.5-11.0)
[2017-02-18 18:03] LABS: BUN/Creatinine Ratio 12.5; Chloride 94.3 mmol/L (98-107); Potassium 4.6 mmol/L (3.6-5.0)
[2017-02-19] MEDS: NEURONTIN PO SCH ×2 (06:07→13:17)
[2017-02-19] MEDS: CATAPRES PO SCH ×2 (06:08→13:17)
[2017-02-19] MEDS: NORCO 5/325 PO PRN (06:57)
[2017-02-19 07:35] VITALS: BP 143/72
[2017-02-19] MEDS: LOPRESSOR PO SCH (08:00)
[2017-02-19] MEDS: NOVOLOG SUB-Q SCH ×3 (08:30→17:10)
--- NOTE | 2017-02-19 09:01 | Discharge Summary ---
Providers - Providers Date of Admission: 02/11/17 19:35 Date of discharge: 02/19/17 Attending physician: ANTHONY HIDALGO 02/11/17 19:53 Occupational Therapy Evaluate and Treat [CONS] Routine Comment: Reason For Exam: PVD Physical Therapy Evaluation and Treat [CONS] Routine Comment: Reason For Exam: PVD Primary care physician: Dr. Maritza Hernandes Hospitalization Reason for admission: PVD with Bypass graft complication Condition: Stable Hospital course: 66 y.o. male with history of right femoropopliteal bypass in May 2016 and recent re-do; post-op reported to have progressively worsening pain and swelling at RLE. 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 Pt is now s/p repair and angioplasty of right peroneal artery. Post-operative course significant for elevated troponins; Cardiology consulted and recommended treatment for abnormal troponins/NSTEMI was anti-platelets and continuation of Eliquis. Acute care course also notable for transfusion of 3U pRBCs due to acute blood loss anemia; RLE pain; gait dysfunction. Once stable, pt was admitted to IRU for aggressive therapies and ongoing medical management. Pain and swelling have improved since admission, as well as, functional independence; H/H has continued to improve; renal function has stabilized. Pt noted to have slightly elevated WBC, however, no signs/symptoms of infection noted and pt remains afebrile. Functionally, pt initially required Greyson for toilet transfers, toileting, and LB dressing; supervision for grooming, UB dressing, bed mobility, transfers and gait, ambulating 47 feet with RW. Pt has now progressed to independent for bed mobility, I-Nigel for transfers; Nigel for gait 154 feet with RW, toilet transfers , shower transfers, UB dressing, grooming, toileting; CGA for ramps; supervision for LB dressing. Pt is currently stable for d/c home. >30 mins spent on discharge process; medication reconciliation; pt education; exam Disposition: DISCHARGED TO HOME OR SELFCARE - Discharge Diagnoses (1) PVD (peripheral vascular disease) with claudication Status: Chronic (2) Bypass graft mechanical complication Status: Resolved Qualifiers: Encounter type: initial encounter Qualified Code(s): T82.398A - Other mechanical complication of other vascular grafts, initial encounter (3) Gait instability Status: Acute (4) Acute blood loss anemia Status: Acute (5) NSTEMI (non-ST elevated myocardial infarction) Status: Acute (6) Diabetes Status: Chronic Qualifiers: Diabetes mellitus type: type 2 Diabetes mellitus complication status: with hyperglycemia Diabetes mellitus complication detail: D Diabetic retinopathy severity: D Proliferative retinopathy type: P Diabetes mellitus macular edema: D Diabetes mellitus long distance operator insulin use: without half-way use Laterality: L Chronic kidney disease stage: C Qualified Code(s): E11.65 - Type 2 diabetes mellitus with hyperglycemia (7) HTN (hypertension) Status: Chronic Qualifiers: Hypertension type: essential hypertension Qualified Code(s): I10 - Essential (primary) hypertension (8) Acute on chronic renal failure Status: Acute Core Measure Documentation - Palliative Care Palliative Care/ Comfort Measures: Not Applicable - Core Measures Any of the following diagnoses?: none Exam - Constitutional Vitals: Temp Pulse Resp BP Pulse Ox 97.7 F 76 18 143/72 98 02/19/17 07:32 02/19/17 07:32 02/19/17 07:32 02/19/17 07:32 02/19/17 07:32 General appearance: Present: no acute distress - EENT Eyes: Present: EOM intact ENT: hearing intact - Neck Neck: Present: supple, normal ROM - Respiratory Respiratory effort: normal Respiratory: bilateral: CTA - Cardiovascular Rhythm: regular Heart Sounds: Present: S1 & S2 - Extremities Extremity abnormal: edema (slowly improving at RLE; groin inspected, all incisions well healed) - Abdominal General gastrointestinal: Present: soft, non-tender, non-distended, normal bowel sounds - Psychiatric Psychiatric: appropriate mood/affect, intact judgment & insight, memory intact, cooperative - Neurologic Neurologic: CNII-XII intact, moves all extremities Plan Activity: no driving until cleared by PCP, fall precautions Weight Bearing Status: Full Weight Bearing Diet: diabetic Wound: keep clean and dry Special Instructions: record daily BP diary, record blood sugar diary, physical therapy, occupational therapy, other (outpt therapies at [facility]) Durable Medical Equipment Needed Upon Discharge: other (has all DME) Follow up with: MARITZA HERNANDES MD [Referring] - 7 Days NAI STEWART MD [Staff Physician] - 7 Days Prescriptions: Apixaban [Eliquis] 5 mg PO Q12HR #60 tablet AtorvaSTATin [Lipitor] 80 mg PO QDAY #30 tablet Cilostazol [Pletal] 100 mg PO QDAY #30 tablet cloNIDine [Catapres] 0.1 mg PO Q8HR #90 tablet Clopidogrel [Plavix] 75 mg PO QDAY #30 tablet Furosemide [Lasix TAB] 40 mg PO QDAY #30 tablet Gabapentin [Neurontin] 300 mg PO Q8HR #90 capsule HYDROcodone/APAP 5-325 [Weiser 5-325 mg TAB] 2 each PO Q6H PRN #45 tablet PRN Reason: Pain, Moderate (4-6) Losartan [Cozaar] 100 mg PO QDAY #30 tablet metFORMIN [Glucophage] 500 mg PO BID #60 tablet Metoprolol [Lopressor TAB] 100 mg PO QDAY #30 tablet Tamsulosin [Flomax] 0.4 mg PO QDAY #30 capsule
[2017-02-19] MEDS: PLETAL PO SCH (09:41)
[2017-02-19] MEDS: COZAAR PO SCH (09:42)
[2017-02-19] MEDS: LASIX PO SCH (09:42)
[2017-02-19] MEDS: FLOMAX PO SCH (09:42)
[2017-02-19] MEDS: GLUCOPHAGE PO SCH (09:42)
[2017-02-19] MEDS: PLAVIX PO SCH (09:42)
[2017-02-19] MEDS: ELIQUIS PO SCH (09:43)
[2017-02-19] MEDS: TYLENOL PO PRN (17:43)
== END 2017-02-19 18:30 | disposition home or self-care (01) | DRG 281 ==
LOC: 3B 19:35
PROVIDERS: ADMIT Family Medicine; ATTEND Family Medicine
DX: T82.398A Other mechanical complication of other vascular grafts, initial encounter (principal); I21.4 Non-ST elevation (NSTEMI) myocardial infarction; D62 Acute posthemorrhagic anemia; I13.0 Hypertensive heart and chronic kidney disease with heart failure and stage 1 through stage 4 chronic kidney disease, or unspecified chronic kidney disease; N17.9 Acute kidney failure, unspecified; I73.9 Peripheral vascular disease, unspecified; I25.10 Atherosclerotic heart disease of native coronary artery without angina pectoris; I50.9 Heart failure, unspecified; N18.9 Chronic kidney disease, unspecified; E11.22 Type 2 diabetes mellitus with diabetic chronic kidney disease; R26.9 Unspecified abnormalities of gait and mobility; E11.65 Type 2 diabetes mellitus with hyperglycemia; E78.5 Hyperlipidemia, unspecified; Z83.3 Family history of diabetes mellitus; Z82.49 Family history of ischemic heart disease and other diseases of the circulatory system
CPT/HCPCS: 36415; 80048; 80053; 82962; 85025; 85027; A9270-GY; J1815

== ENCOUNTER 2018-06-16 08:59 | Day surgery (SDC) | payer MEDICARE, OTHER ==
[~2018-06-16 08:59] MED LIST: ANCEF/STERILE WATER 2 GM/20 ML 2 GM/20 ML SYRINGE IV NR
[2018-06-16 10:14] LABS: Basophils % (Auto) 0.7 % (0.0-1.8); Eosinophils # (Auto) 0.2 K/mm3 (0.0-0.4); Eosinophils % (Auto) 2.9 % (0.0-4.3); Hematocrit 36.9 % (35.5-45.6); Hemoglobin 12.3 gm/dl (11.8-15.2); Lymphocytes # (Auto) 1.6 K/mm3 (1.2-5.4); Lymphocytes % (Auto) 23.5 % (13.4-35.0); Mean Corpuscular HGB Conc 33 % (32-34); Mean Corpuscular Hemoglobin 29 pg (28-32); Mean Corpuscular Volume 87 fl (84-94); Monocytes # (Auto) 0.6 K/mm3 (0.0-0.8); Monocytes % (Auto) 9.1 % (0.0-7.3); Platelet Count 278 K/mm3 (140-440); Red Blood Count 4.27 M/mm3 (3.65-5.03); Red Cell Distribution Width 16.2 % (13.2-15.2)
[2018-06-16 10:23] LABS: Calcium 8.8 mg/dL (8.4-10.2)
[2018-06-16 10:30] LABS: INR 0.97 (0.87-1.13); Partial Thromboplastin Time 32.2 Sec. (24.2-36.6)
[2018-06-16] MEDS: NACL 0.9% 1000 ML 1,000 ML IV SCH ×2 (10:40→13:58)
[2018-06-16] MEDS ORDERED: HEPARIN/NS 5000 UNIT/500ML(CATH LAB) 1,500 ML IR ONE (13:18)
[2018-06-16] MEDS ORDERED: ANCEF/STERILE WATER 2 GM/20 ML 2 GM/20 ML SYRINGE IV ONE (13:18)
[2018-06-16] MEDS ORDERED: HEPARIN 10,000 UNITS/10 ML ONE (13:18)
[2018-06-16] MEDS: VERSED ONE ×3 (13:56→14:18)
[2018-06-16] MEDS: SUBLIMAZE ONE ×3 (13:57→14:18)
[2018-06-16] MEDS: XYLOCAINE 2% INFILTRATI ONE ×2 (13:58→14:06)
[2018-06-16 16:23] VITALS: BP 170/80
--- NOTE | 2018-06-16 17:20 | Short Stay Summary ---
Short Stay Documentation Date of service: 06/16/18 Narrative H&P: See H&P - History H&P: obtained from office - Allergies and Medications Current Medications: Allergies lisinopril Allergy (Verified 02/05/17 15:31) Shortness of Breath Home Medications Medication Instructions Recorded Confirmed Last Taken Type AtorvaSTATin [Lipitor] 80 mg PO QDAY #30 tablet 02/19/17 06/16/18 06/15/18 Rx 80mg Cilostazol [Pletal] 100 mg PO QDAY #30 tablet 02/19/17 06/16/18 06/15/18 Rx 100mg Furosemide [Lasix TAB] 40 mg PO QDAY #30 tablet 02/19/17 06/16/18 06/15/18 Rx 40mg Losartan [Cozaar] 100 mg PO QDAY #30 tablet 02/19/17 06/16/18 06/15/18 Rx 100mg Metoprolol [Lopressor TAB] 100 mg PO QDAY #30 tablet 02/19/17 06/16/18 06/15/18 Rx 100mg Tamsulosin [Flomax] 0.4 mg PO QDAY #30 capsule 02/19/17 06/16/18 06/15/18 Rx 0.4mg Apixaban [Eliquis] 5 mg PO DAILY 06/16/18 06/16/18 06/16/18 History 5mg Clopidogrel Bisulfate [Clopidogrel] 75 mg PO DAILY 06/16/18 06/16/18 06/16/18 History 75mg hydrALAZINE [Apresoline TAB] 25 mg PO DAILY 06/16/18 06/16/18 06/16/18 History 25mg Active Medications Cefazolin Sodium (Ancef/Sterile Water 2 Gm/20 Ml) 2 gm in 20 mls @ 80 mls/hr IV PREOP NR; Protocol Stop: 06/16/18 23:59 Sodium Chloride (Nacl 0.9% 1000 Ml) 1,000 mls @ 42 mls/hr IV DIRECT ZACK Last Admin: 06/16/18 13:58 Dose: 42 mls/hr - Brief post op/procedure progress note Date of procedure: 06/16/18 Pre-op diagnosis: 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 Ultrasound Guided Access Left Femoral Artery 2. Diagnostic Aortogram with Right Lower Extremity Runoff Runoff (No Previous Films for Comparison) 3. Angioplasty and Stent of Right Femoral to Popliteal Artery Bypass with 7 x 15 and 7 x 10 cm Viabahn Stent Grafts and a 7 x 120 Balloon 4. Radiologic Supervision with Interpretation Anesthesia: local, other (i.v. Sedation) Surgeon: NAI STEWART Estimated blood loss: minimal Pathology: none Condition: stable - Disposition Condition at discharge: Good Disposition: DC-01 TO HOME OR SELFCARE Short Stay Discharge Plan Activity: other (No strenuous activity for 24 hours) Wound: remove dressing (24 hours) Follow up with: NAI STEWART MD [Staff Physician] - 14 Days
--- NOTE | 2018-06-16 17:23 | Operative Report ---
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 Ultrasound Guided Access Left Femoral Artery 2. Diagnostic Aortogram with Right Lower Extremity Runoff Runoff (No Previous Films for Comparison) 3. Angioplasty and Stent of Right Femoral to Popliteal Artery Bypass with 7 x 15 and 7 x 10 cm Viabahn Stent Grafts and a 7 x 120 Balloon 4. Radiologic Supervision with Interpretation Surgeon: Yung Nathan M.D. Tractor Mechanic Helper: [] Anesthesia: [] EBL: [] Counts: [] Complications: [] Condition: [] Findings: [] Specimen: [] Indication: [] Description of Procedure: []
== END 2018-06-16 17:11 | disposition home or self-care (01) ==
LOC: CATHLABREC 08:59
PROVIDERS: ATTEND Surgery Vascular Surgery
DX: I70.213 Atherosclerosis of native arteries of extremities with intermittent claudication, bilateral legs (principal); I13.0 Hypertensive heart and chronic kidney disease with heart failure and stage 1 through stage 4 chronic kidney disease, or unspecified chronic kidney disease; E11.22 Type 2 diabetes mellitus with diabetic chronic kidney disease; I50.9 Heart failure, unspecified; N18.3 Chronic kidney disease, stage 3 (moderate); E78.5 Hyperlipidemia, unspecified; I25.2 Old myocardial infarction; E78.00 Pure hypercholesterolemia, unspecified; F32.9 Major depressive disorder, single episode, unspecified; I70.413 Atherosclerosis of autologous vein bypass graft(s) of the extremities with intermittent claudication, bilateral legs; I72.8 Aneurysm of other specified arteries; Z79.01 Long term (current) use of anticoagulants; Z79.899 Other long term (current) drug therapy; Z88.8 Allergy status to other drugs, medicaments and biological substances; Z98.890 Other specified postprocedural states; Z87.891 Personal history of nicotine dependence; Z86.73 Personal history of transient ischemic attack (TIA), and cerebral infarction without residual deficits; Z86.718 Personal history of other venous thrombosis and embolism; Z86.2 Personal history of diseases of the blood and blood-forming organs and certain disorders involving the immune mechanism
CPT/HCPCS: 36415; 37226; 75625; 75710; 76937; 80048; 85025; 85610; 85730; 99156; 99157; C1725; C1760; C1769; C1874; C1887; J0690; J1644; J2250; J3010; J7030; Q9967

== ENCOUNTER 2018-11-17 09:43 | Outpatient (CLI) | payer MEDICARE, OTHER | END 2018-11-17 09:44 | disposition home or self-care (01) | LOC: CT 09:43 | PROVIDERS: ATTEND Surgery Vascular Surgery | DX: E11.9 Type 2 diabetes mellitus without complications (principal); I70.213 Atherosclerosis of native arteries of extremities with intermittent claudication, bilateral legs; I13.0 Hypertensive heart and chronic kidney disease with heart failure and stage 1 through stage 4 chronic kidney disease, or unspecified chronic kidney disease; N18.3 Chronic kidney disease, stage 3 (moderate); E78.5 Hyperlipidemia, unspecified; E78.00 Pure hypercholesterolemia, unspecified; Z90.89 Acquired absence of other organs; Z87.891 Personal history of nicotine dependence | CPT/HCPCS: 36415; 82565; 84520 ==